=== PATIENT | female | born 1975 ===

== ENCOUNTER 2017-03-10 17:52 | Emergency (ER) | payer MEDICAID ==
[2017-03-10 18:11] VITALS: PULSE 80; RESP 18; TEMP 98.4; O2SAT 99
--- NOTE | 2017-03-10 18:40 | ED PDOC ---
HPI: Skin/Bite Injury Time Seen by Provider: 03/10/17 18:15 Chief Complaint (Nursing): Upper Extremity Problem/Injury Chief Complaint (Provider): laceration History Per: Patient History/Exam Limitations: no limitations (laceration) Additional Complaint(s): 41 yo F in Ed with injury to left hand-states that while cutting garlic knife punctured her left palm(central) < 2hrs [employer]ACH[employer]. admits to pain but FROM of all digits. no active bleeding. right hand dominant. tetanus not uptodate. no weakness. Past Medical History Reviewed: Historical Data, Nursing Documentation, Vital Signs Vital Signs: Last Vital Signs Temp 98.4 F 03/10/17 18:09 Pulse 80 03/10/17 18:09 Resp 18 03/10/17 18:09 BP 94/62 L 03/10/17 18:09 Pulse Ox 99 03/10/17 18:50 - Family History Family History: States: No Known Family Hx - Allergies Allergies/Adverse Reactions: Allergies Allergy/AdvReac Type Severity Reaction Status Date / Time No Known Allergies Allergy Verified 03/10/17 18:37 Review of Systems ROS Statement: Except As Marked, All Systems Reviewed And Found Negative Musculoskeletal: Positive for: Hand Pain Physical Exam - Reviewed Nursing Documentation Reviewed: Yes Vital Signs Reviewed: Yes - Physical Exam Appears: Positive for: Well, Non-toxic, No Acute Distress Skin: Positive for: Normal Color, Warm, DRY Extremity: Positive for: Other (left hand: puncture wound note .5cm central palm no active bleeding FROM of all digits. no evidence of tendon involvment. nuerovasc intact. cap refill intact.superifical) Neurologic/Psych: Positive for: Alert, Oriented - ECG O2 Sat by Pulse Oximetry: 99 - Radiology X-Ray: Interpreted by Ma X-Ray Interpretation: No Acute Disease - Progress ED Course And Treament: laceration to palm of hand. irrigated with NS/betadine and repaired with dermabond will get Xray. monicanus updated/ Medical Decision Making Medical Decision Making: advised to have pmd eval not wet for 12 hrs (the wound) Disposition - Clinical Impression Clinical Impression: Puncture wound, Tetanus toxoid vaccination administered at current visit - Patient ED Disposition Is Patient to be Admitted: No Counseled Patient/Family Regarding: Studies Performed, Diagnosis, Need For Followup - Disposition Disposition: Routine/Home Disposition Time: 18:49 Condition: STABLE Instructions: Laceration (ED), Skin Adhesive Care (ED) Forms: [facility] (Malay)
[2017-03-10 19:35] VITALS: BP 102/66
--- NOTE | 2017-03-11 07:29 | RAD ---
PROCEDURE: Left Hand Radiographs. HISTORY: puncture wound COMPARISON: None. FINDINGS: BONES: Normal. No fracture. JOINTS: Normal. No osteoarthritic changes. SOFT TISSUES: Normal. OTHER FINDINGS: None. IMPRESSION: Normal left hand radiographs.
== END 2017-03-10 19:34 | disposition home or self-care (01) ==
LOC: H.ER 17:52
DX: S61.432A Puncture wound without foreign body of left hand, initial encounter (principal); W26.0XXA Contact with knife, initial encounter; Z23 Encounter for immunization